=== PATIENT | male | born 2000 | race Caucasian/White ===

== ENCOUNTER 2025-03-07 22:01 | Emergency (ER) | payer BC, MEDICAID, SELFPAY ==
[2025-03-07 22:01] VITALS: BP 148/86; PULSE 101; RESP 20; O2SAT 100; BMI 22.2
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
[2025-03-07] MEDS: HYDROmorphone 0.5 MG/0.5 ML INJ 1 MG IVP (22:16)
[2025-03-07] MEDS: ceFAZolin 2,000 mg SDV 2000 MG IVP (22:16)
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
[2025-03-07 23:14] VITALS: BP 142/91; PULSE 96; RESP 18; O2SAT 100
[2025-03-07 23:22] VITALS: RESP 18
[2025-03-07] MEDS: diphenhydrAMINE 50 mg/mL SDV 1mL IVP (23:22)
[2025-03-07] MEDS: morphine 4 mg/mL SDV 1 mL IVP (23:22)
[2025-03-07] MEDS: tetanus-dipt-pertussis 0.5 mL SDV IM (23:22)
[2025-03-08 00:33] LABS: Hematocrit 39.2 % (37-53); Hemoglobin 14.20 g/dL (11.27-16.99); Mean Corpuscular HGB Conc 36.2 g/dL (30-55); Mean Corpuscular Hemoglobin 31.3 pg (27-33); Mean Corpuscular Volume 86.3 fl (82-101); Platelet Count 315 10^3/cmm (157-399); Red Blood Count 4.54 10^6/uL (3.85-5.65); White Blood Count 8.46 10^3/uL (3.29-11.43)
[2025-03-08 00:51] LABS: Alanine Aminotransferase 35 U/L (0-41); Albumin Level 4.3 g/dL (3.5-5.2); Alkaline Phosphatase 88 U/L (40-130); Anion Gap 19.0 (5-19); Aspartate Amino Transferase 29 U/L (0-40); Blood Urea Nitrogen 14 mg/dL (6-20); Calcium 8.7 mg/dL (8.5-10.5); Carbon Dioxide 20 mmol/L (22-29); Chloride 103 mmol/L (98-107); Creatinine Clr Calc Pharmacy 123.8323; Globulin 2.5 g/dL (1.3-4.6); Glucose 100 mg/dL (65-115); Osmolality Calculated 289 mOsm/kg (285-295); Potassium 3.0 mmol/L (3.5-5.1); Sodium 139 mmol/L (136-145); Total Protein 6.8 g/dL (6.6-8.7)
[2025-03-08 00:54] LABS: Absolute Segmented Neutrophil 5.4 10/cmm (1.6-7.1); Atypical Lymphs 0.0 % (0-5); Band Neutrophils Absolute 0.0 10^3/cmm (0.0-1.2); Total Cells Counted 100 (0-100)
[2025-03-08 01:00] VITALS: BP 137/91; PULSE 87; RESP 16; O2SAT 100
[2025-03-08 03:09] VITALS: BP 141/93; PULSE 60; RESP 16; O2SAT 99
[2025-03-08] MEDS: HYDROcodone-acetaminophen 10-325 mg Tablet 2 TAB PO (03:09)
== END 2025-03-08 03:19 | disposition home or self-care (01) ==
PROVIDERS: Emergency Provider Physician Assistant; PCP Nurse Practitioner Family
DX: S62.630B Displaced fracture of distal phalanx of right index finger, initial encounter for open fracture (principal); H66.011 Acute suppurative otitis media with spontaneous rupture of ear drum, right ear; T23.251A Burn of second degree of right palm, initial encounter; W40.9XXA Explosion of unspecified explosive materials, initial encounter; X19.XXXA Contact with other heat and hot substances, initial encounter
CPT/HCPCS: 12002; 12044; 73130; 80053; 85007; 85027; 90471; 90715; 96374; 96375; 99284; J0690; J1171; J1200; J2270; J9999